=== PATIENT | female | born 1950 | race Caucasian/White ===

== ENCOUNTER 2019-04-02 14:13 | Emergency (ER) | payer BC ==
[~2019-04-02] VITALS: Ht 157.5 cm; Wt 59.0 kg
[2019-04-02 15:15] LABS: BASOPHILS ABSOLUTE AUTO 0.07 K/mm3 (0.00-0.23); BASOPHILS PERCENT AUTO 1 % (0-2); EOSINOPHILS ABSOLUTE AUTO 0.24 K/mm3 (0.00-0.68); EOSINOPHILS PERCENT AUTO 2 % (0-6); Hematocrit 48.6 % (33.0-51.0); IMMATURE GRAN ABSOLUTE AUTO 0.08 K/mm3 (0.00-0.10); IMMATURE GRAN PERCENT AUTO 1 % (0-1); LYMPHOCYTES ABSOLUTE AUTO 1.39 K/mm3 (0.84-5.20); LYMPHOCYTES PERCENT AUTO 10 % (21-46); MONOCYTES PERCENT AUTO 11 % (4-13); Mean Corpuscular HGB 32.2 pg (26.0-34.0); Mean Corpuscular HGB Conc 32.9 g/dL (31.5-36.5); Mean Corpuscular Volume 98 fL (80-100); Mean Platelet Volume 10.8 fL (9.1-12.4); NEUTROPHILS ABSOLUTE AUTO 10.49 K/mm3 (1.96-9.15); NEUTROPHILS PERCENT AUTO 76 % (41-73); Platelet Count 314 K/mm3 (150-400); RDW Coefficient Variation 12.8 % (11.7-14.2); RDW Standard Deviation 45.9 fL (35.1-46.3); Red Blood Cell Count 4.97 M/mm3 (3.80-5.20); White Blood Cell Count 13.77 K/mm3 (4.00-11.30)
[2019-04-02 15:27] LABS: Source, Urine Clean Catch
[2019-04-02 15:28] LABS: International Normalized Ratio 1.09; Prothrombin Time Results 11.5 Sec (9.7-11.5)
[2019-04-02 15:40] LABS: Blood, Urine 2+ (Neg); Glucose Qualitative, Urine Neg (Neg); Ketones, Urine 3+ (Neg); Leukocyte Esterase, Urine 3+ (Neg); Nitrite, Urine Neg (Neg); Protein, Urine 3+ (Neg); Urobilinogen, Urine 2+ (Normal)
[2019-04-02 15:49] LABS: U Amphetamine Screen Not Detected; U Barbituate Screen Not Detected; U Benzodiazapine Screen Not Detected; U Buprenorphine Screen Not Detected; U Cannabinoids Screen Not Detected; U Cocaine Screen Not Detected; U Methadone Screen Not Detected; U Methamphetamine Screen Not Detected; U Opiates Screen Not Detected; U Oxycodone Screen Not Detected; U Phencyclidine Screen Not Detected; U Propoxyphene Screen Not Detected
[2019-04-02 15:52] LABS: Appearance, Urine Cloudy (Clear); Bilirubin, Urine 2+ (Neg); Color, Urine Yellow (P-Yellow)
[2019-04-02 15:53] LABS: White Blood Cells, Urine TNTC /hpf (0-5)
[2019-04-02 15:54] LABS: Ethanol (Alcohol), Blood, Med <3 mg/dL
[2019-04-02 15:54] LABS: Bacteria Many /hpf; Calcium Oxalate Crystals Few /hpf; Squamous Epithelial Cells Many /hpf (Few)
[2019-04-02 15:56] LABS: Alanine Aminotransfer (ALT/SGP 17 U/L (12-78); Albumin, Blood 3.4 g/dL (3.4-5.0); Albumin/Globulin Ratio 0.8 (0.8-1.8); Alk Phos 101 U/L (50-136); Anion Gap 11 mmol/L (6-16); Aspartate Aminotrans (AST/SGOT 17 U/L (12-37); Bilirubin, Total 0.5 mg/dL (0.1-1.0); Blood Urea Nitrogen 37 mg/dL (8-24); Bun/Creatinine Ratio 37.7 (12.0-20.0); CO2, Blood 25 mmol/L (21-32); Calcium, Blood 10.5 mg/dL (8.5-10.1); Chloride, Blood 110 mmol/L (98-108); Creatinine, Blood 0.98 mg/dL (0.40-1.00); Globulin, Blood 4.3 g/dL (2.2-4.0); Glomerular Filtration Rate >60 (60-); Glucose, Blood 136 mg/dL (70-99); Potassium, Blood 3.8 mmol/L (3.5-5.5); Sodium, Blood 146 mmol/L (136-145); Total Protein, Blood 7.7 g/dL (6.4-8.2)
[2019-04-02] MEDS ORDERED: Norco 5-325 Ta1 EACH PO (16:06)
[2019-04-02] MEDS ORDERED: DEXA4 PO (16:06)
== END 2019-04-02 17:00 | disposition home or self-care (01) ==
LOC: ER 14:13
PROVIDERS: Physician Assistant
DX: C34.90 Malignant neoplasm of unspecified part of unspecified bronchus or lung (principal); C79.31 Secondary malignant neoplasm of brain; F17.210 Nicotine dependence, cigarettes, uncomplicated
CPT/HCPCS: 36415; 70450; 71045; 71260; 80053; 81001; 85025; 85610; 87086; 93005; 93010; 96374-59; 99285-25; G0480; J1100; Q9967

== ENCOUNTER 2019-04-09 08:12 | Day surgery (SDC) | payer BC ==
[~2019-04-09] VITALS: Ht 162.6 cm; Wt 57.2 kg
[~2019-04-09 08:12] MED LIST: DEXA4 PO; FLUC100 PO; MEMA10 PO; MEMA5TAB PO; Norco 5-325 Ta1 EACH PO
--- NOTE | 2019-04-09 09:06 | NUR ---
PT ADMITTED TO [facility]. PT AMBULATING WITH WALKER. LEFT SIDED WEEKNESS. AT BEDSIDE. LUNG SOUNDS CLEAR.
--- NOTE | 2019-04-09 09:30 | NUR ---
PT TOOK DECADRON 4MG FROM HOME MEDICATION PER DR. FELDER'S REQUEST.
--- NOTE | 2019-04-09 09:30 | NUR ---
WITH HELD CHLORHEXADINE CLOTH. RED MASS NOTED ON CHEST WALL WITH POSSIBLE OPEN AREAS. RINGS GIVEN TO .
--- NOTE | 2019-04-09 12:04 | NUR ---
Discharge instructions reviewed with patient. Patient verbalizes understanding. Copy given to patient to take home. Dressing to procedure site clean, dry, intact with no visible drainage, swelling, erythema or bruising noted. Patient States Post-Procedure ride home has been arranged. Discharged via wheelchair to private car for ride home.
[2019-04-13 15:44] LABS: Performing Lab SYMBIODX; Test Name TISSUE BLOCK
== END 2019-04-09 11:57 | disposition home or self-care (01) ==
LOC: ORSCMMR 08:12 → ORD 09:00 → ORSCMMR 09:00
PROVIDERS: Surgery
PROC: 0JB60ZZ Excision of Chest Subcutaneous Tissue and Fascia, Open Approach (ICD-10-PCS; principal; 2019-04-09 09:00)
DX: C79.89 Secondary malignant neoplasm of other specified sites (principal); C34.11 Malignant neoplasm of upper lobe, right bronchus or lung; Z87.891 Personal history of nicotine dependence; Z79.899 Other long term (current) drug therapy
CPT/HCPCS: 88305; 88341; 88342; A9270-GY; J0690; J2250; J2704; J3010; J7120

== ENCOUNTER 2019-05-21 09:38 | Emergency (ER) | payer BC ==
[~2019-05-21] VITALS: Ht 162.6 cm; Wt 54.4 kg
[~2019-05-21 09:38] MED LIST changes: -MEMA5TAB PO
[2019-05-21] MEDS ORDERED: OXYC5 PO (09:48)
[2019-05-21] MEDS ORDERED: DEXA4 PO (09:49)
[2019-05-21] MEDS ORDERED: ONDA8 PO (09:50)
--- NOTE | 2019-05-21 11:40 | NUR ---
Initial Visit: Palliative Care Consult for Goals of Care. Spoke with Dr Campos and he reports Pt would benefit from palliative care visit. Pt has history of lung cancer with leilani to the brain and has been experiencing significant weakness. Pt is A&O and denies pain at this time. She does report her pain has been increasing in frequency and intensity. Current regimen is still managing pain. Pt repoorts mild anxiety and denies dyspnea at this time. Pt's Lalit who prefers to be addressed as Alejandro is at bedside. Engaged in therapeutic dicussion regarding goals of care. Pt lives at home with , adult grandson, and adult son. Alejandro reports he runs the [employer], works at the [employer], and is Pt's primary caregiver. Alejandro reports grandson is supportive with careneeds when called upn. Pt also has a daughter who helps on occasion. Although there is some support for Pt, Alejandro reports caregiver fatigue. Pt has been experiencing significant decline with increased weakness to the point she can not get off the couch without the help of 2 or more people. Alejandro reports Pt has lost 50 or more pounds in the last 6 months. Pt reports poor appetite and becomes nauseated when eating. Pt does attempt to drink ensure. Pt also reports experiencing increased pain frequency. Educated Pt on the importance to communicate with oncologist regarding pain and if she finds herself using her breakthrough pain medication more than 3 times daily to discuss adding a long acting pain medication to her regimen. Pt reports 2 oncologist who oversee her care, Dr Fields and Dr Mcintosh. Discussed if treatment she is receiving is palliative or curative. Both Pt and are unsure but Pt reports oncologists are optimistic of her treatment. Discussed options for Pt inclduing physical therapy through home health and the option for hospice. Pt shook her head from side to side indicating no for the option of hospice. Pt and express interest with home health. Pt appears to be declining and would be appropriate for hospice if she chooses this option. Spoke with Dr Campos regarding Pt's wishes to pursue physical therapy through home health and he is agreeable. Spoke with care managers in office regarding Pt's wishes. information manager Gerry will see Pt in the ED and address referral for home health. Palliative Care will remain available.
== END 2019-05-21 13:45 | disposition home or self-care (01) ==
LOC: ER 09:38
DX: R53.1 Weakness (principal); C71.9 Malignant neoplasm of brain, unspecified; F17.200 Nicotine dependence, unspecified, uncomplicated; Z79.899 Other long term (current) drug therapy
CPT/HCPCS: 76882; 99285-25

== ENCOUNTER 2019-06-07 00:48 | Emergency (ER) | payer BC ==
[~2019-06-07] VITALS: Ht 162.6 cm; Wt 63.5 kg
[~2019-06-07 00:48] MED LIST changes: +ONDA8 PO; +OXYC5 PO
[2019-06-07] MEDS ORDERED: MORP10S (01:11)
[2019-06-07 02:51] LABS: Source, Urine Clean Catch
[2019-06-07 02:59] LABS: Bilirubin, Urine Neg (Neg); Blood, Urine 1+ (Neg); Glucose Qualitative, Urine Neg (Neg); Ketones, Urine Neg (Neg); Leukocyte Esterase, Urine 2+ (Neg); Nitrite, Urine Neg (Neg); Protein, Urine 2+ (Neg); Urobilinogen, Urine 1+ (Normal)
[2019-06-07 03:01] LABS: Appearance, Urine Hazy (Clear); Color, Urine Amber (P-Yellow)
[2019-06-07 03:05] LABS: Bacteria Mod /hpf; Red Blood Cells, Urine 0-2 /hpf (0-2); Squamous Epithelial Cells Rare /hpf (Few); White Blood Cells, Urine 50-100 /hpf (0-5)
[2019-06-07 03:06] LABS: Amorphous Light (0-Heavy); Granular Casts 0-2 /lpf (0); Mucus Light (0-Heavy); Other Crystals Few /hpf
[2019-06-07] MEDS ORDERED: CEFD300 PO (03:28)
[2019-06-07 03:48] LABS: Hematocrit 26.4 % (33.0-51.0); Hemoglobin 8.1 g/dL (11.5-16.0); Mean Corpuscular HGB 30.5 pg (26.0-34.0); Mean Corpuscular HGB Conc 30.7 g/dL (31.5-36.5); Mean Corpuscular Volume 99 fL (80-100); NRBC ABSOLUTE 0.11 K/mm3 (0.00-0.02); NRBC Auto 0.7 /100 WBC (0.0-0.2); Platelet Count 159 K/mm3 (150-400); RDW Coefficient Variation 16.6 % (11.7-14.2); RDW Standard Deviation 60.1 fL (35.1-46.3); Red Blood Cell Count 2.66 M/mm3 (3.80-5.20); White Blood Cell Count 15.28 K/mm3 (4.00-11.30)
[2019-06-07 04:21] LABS: BAND PERCENT MAN 11 % (0-8); BASOPHILS PERCENT MAN 0 % (0-2); EOSINOPHILS PERCENT MAN 0 % (0-6); LYMPHOCYTES ABSOLUTE MAN 0.91 K/mm3 (0.84-5.20); LYMPHOCYTES PERCENT MAN 6 % (21-46); METAMYELOCYTE ABSOLUTE MAN 0.15 K/mm3 (0.00-0.00); METAMYELOCYTE PERCENT MAN 1 % (0-0); MONOCYTES PERCENT MAN 0 % (4-13); MYELOCYTE PERCENT MAN 2 % (0-0); SEG NEUTROPHILS PERCENT MAN 80 % (41-73); TOTAL CELLS COUNTED 100
[2019-06-07 04:37] LABS: Alanine Aminotransfer (ALT/SGP 141 U/L (12-78); Albumin, Blood 1.6 g/dL (3.4-5.0); Albumin/Globulin Ratio 0.5 (0.8-1.8); Alk Phos 129 U/L (50-136); Anion Gap 11 mmol/L (6-16); Aspartate Aminotrans (AST/SGOT 129 U/L (12-37); Bilirubin, Total 0.5 mg/dL (0.1-1.0); Blood Urea Nitrogen 57 mg/dL (8-24); Bun/Creatinine Ratio 73.2 (12.0-20.0); CO2, Blood 22 mmol/L (21-32); Calcium, Blood 8.5 mg/dL (8.5-10.1); Chloride, Blood 107 mmol/L (98-108); Creatinine, Blood 0.78 mg/dL (0.40-1.00); Glomerular Filtration Rate >60 (60-); Glucose, Blood 162 mg/dL (70-99); Sodium, Blood 140 mmol/L (136-145); Total Protein, Blood 4.6 g/dL (6.4-8.2)
== END 2019-06-07 07:30 | disposition home or self-care (01) ==
LOC: ER 00:48
PROVIDERS: Emergency Medicine
DX: N39.0 Urinary tract infection, site not specified (principal); D64.9 Anemia, unspecified; I48.91 Unspecified atrial fibrillation; E86.0 Dehydration; D72.829 Elevated white blood cell count, unspecified; C34.90 Malignant neoplasm of unspecified part of unspecified bronchus or lung; R79.89 Other specified abnormal findings of blood chemistry; Z79.899 Other long term (current) drug therapy; Z79.52 Long term (current) use of systemic steroids; F17.200 Nicotine dependence, unspecified, uncomplicated
CPT/HCPCS: 36415; 51701; 51702; 71046; 80053; 81001; 84484; 85025; 87077; 87086; 87186; 93005; 93010; 96361-59; 96365-59; 96375-59; 99284-25; J0696; J1170; J2270; J7030